=== PATIENT | female | born 1990 | race Caucasian/White ===

== ENCOUNTER 2019-06-30 21:17 | Emergency (ER) | payer SELFPAY ==
[~2019-06-30] VITALS: Ht 165.1 cm; Wt 73.0 kg
[2019-06-30 21:35] VITALS: BP 165/96
--- NOTE | 2019-06-30 21:43 | NUR ---
PT AMBULATED TO BED #9
--- NOTE | 2019-06-30 21:58 | NUR ---
PATIENT PRESENTS TO ED WITH REFERRED BY URGENT CARE FOR ELEVATED BP X3 DAYS AND ABNORMAL ECG. C/O PULSATIONS TO LT SIDE OF NECK AND LT SHOULDER PAIN. BP AT TRIAGE 165/96/ +HEADACHE AND DIZZINESS . PT STATES FAMILY HX ON BVOTH SIDES OF HTN. PT STATES JAFFE,RINGING IN LEFT EAR. DENIES BLURED VISION. NKA DENIES N/V/D; SKIN IS PINK/WARM/DRY; AAOX4 WITH EVEN AND STEADY GAIT; LUNGS CLEAR BL; HR EVEN AND REGULAR; PT DENIES ANY FEVER, CP, SOB, OR COUGH AT THIS TIME; PATIENT STATES PAIN OF 0/10 AT THIS TIME; VSS; PATIENT POSITIONED FOR COMFORT; HOB ELEVATED; BEDRAILS UP X2; BED DOWN. ER MD MADE AWARE OF PT STATUS.
--- NOTE | 2019-06-30 22:00 | NUR ---
EKG PERFORMED AT BEDSIDE
[2019-06-30] MEDS ORDERED: hydrALAZINE 10 MG TAB PO ONE (22:05)
[2019-06-30] MEDS ORDERED: IBUPROFEN 600 MG TAB PO ONE (22:05)
[2019-06-30] MEDS ORDERED: hydrALAZINE 10 MG TAB ONE (22:19)
[2019-06-30 22:40] LABS: APPEARANCE,URINE CLEAR (CLEAR); BILIRUBIN,URINE NEGATIVE (NEGATIVE); BLOOD, URINE 2+ (NEGATIVE); COLOR,URINE YELLOW (YELLOW); LEUKOCYTE ESTERASE ,URINE NEGATIVE (NEGATIVE); NITRITE, URINE NEGATIVE (NEGATIVE); PH,URINE 5.5 (5.0-9.0); UGLUCOSE NEGATIVE (NEGATIVE)
[2019-06-30 22:51] LABS: ANION GAP 14.7 (8-16); CARBON DIOXIDE 25.9 mmol/L (21-32); CREATININE 0.8 mg/dL (0.6-1.3); POTASSIUM 3.6 mmol/L (3.5-5.1)
[2019-06-30 22:54] LABS: RBC,URINE 0-5 /HPF (0-5); WBC,URINE 0-5 /HPF (0-5)
[2019-06-30 22:56] LABS: ALBUMIN 3.7 g/dL (3.4-5.0); TOTAL BILIRUBIN 0.7 mg/dL (0.0-1.0)
--- NOTE | 2019-06-30 23:36 | NUR ---
PT STATES FEELING BETTER. PT STATES HEADACHE IS GONE, NECK IS NOT PULSATING AND NO RINGING IN EAR. PT BP STILL ELEVATED AT THIS TIME. 147/92
[2019-06-30 23:37] LABS: BASOPHILS # (AUTO) 0.1 K/uL (0.00-0.22); BASOPHILS % (AUTO) 0.6 % (0.0-2.0); EOSINOPHILS % (AUTO) 0.5 % (0.0-4.0); HEMATOCRIT 38.2 % (36-48); HEMOGLOBIN 13.4 g/dL (12.0-16.0); LYMPHOCYTES # (AUTO) 2.4 K/uL (2.5-16.5); LYMPHOCYTES % (AUTO) 25.8 % (20.5-51.1); MEAN CORPUSCULAR HEMOGLOBIN 32 pg (27-31); MEAN CORPUSCULAR HGB CONC 35 g/dL (33-37); MONOCYTES # (AUTO) 0.7 K/uL (0.8-1.0); MONOCYTES % (AUTO) 7.4 % (1.7-9.3); NEUTROPHILS # (AUTO) 6.1 K/uL (1.8-7.7); NEUTROPHILS % (AUTO) 65.7 % (42.2-75.2); PLATELET COUNT (AUTO) 312 K/uL (140-450); RED BLOOD CELL COUNT(AUTO) 4.16 MIL/uL (4.20-5.40); RED CELL DISTRIBUTION WIDTH 12.5 % (11.6-13.7); WHITE BLOOD COUNT (AUTO) 9.3 K/uL (4.8-10.8)
--- NOTE | 2019-06-30 23:45 | NUR ---
Patient discharged with v/s stable. Written and verbal after care instructions given and explained. Patient alert, oriented and verbalized understanding of instructions. Ambulatory with steady gait. All questions addressed prior to discharge. ID band removed. Patient advised to follow up with PMD. Rx of HYDRALAZINE AND IBUPROFEN given. Patient educated on indication of medication including possible reaction and side effects. Opportunity to ask questions provided and answered.
[2019-06-30 23:51] VITALS: BP 147/92
== END 2019-06-30 23:45 | disposition home or self-care (01) ==
LOC: MED 21:17
DX: M94.0 Chondrocostal junction syndrome [Tietze] (principal); R07.9 Chest pain, unspecified; I10 Essential (primary) hypertension
CPT/HCPCS: 36415; 71045; 80053; 81001; 85025; 85379; 87086; 93005; 99284; Q0092